=== PATIENT | male | born 1970 | race African-American/Black ===

== ENCOUNTER 2023-09-22 22:06 | Emergency (ER) | payer OTHER ==
[2023-09-22 22:19] VITALS: BMI 31.8
[2023-09-22 23:37] LABS: POTASSIUM 3.8 mmol/L (3.5-5.1)
[2023-09-22 23:39] LABS: CALCIUM 8.8 mg/dL (8.5-10.1)
[2023-09-22 23:40] LABS: ALBUMIN 3.5 g/dl (3.4-5.0)
[2023-09-22 23:43] LABS: CREATININE 1.1 mg/dL (0.55-1.3)
[2023-09-22 23:44] LABS: TOT PROT 7.1 g/dl (6.4-8.2)
[2023-09-22 23:45] LABS: BILIRUBIN,TOTAL 0.4 mg/dL (0.2-1)
[2023-09-23 00:09] VITALS: BP 165/79; PULSE 62; RESP 18; TEMP 99
== END 2023-09-23 00:10 | disposition home or self-care (01) ==
LOC: JER 22:06
DX: H92.01 Otalgia, right ear (principal); H66.91 Otitis media, unspecified, right ear; I10 Essential (primary) hypertension; I44.0 Atrioventricular block, first degree
CPT/HCPCS: 36415; 80053; 93005; 93010; 99284-25